=== PATIENT | female | born 1955 | race Caucasian/White ===

== ENCOUNTER 2018-10-15 20:35 | Emergency (ER) | payer OTHER ==
[2018-10-15] MEDS ORDERED: PHENYLEPHRINE 0.5% NOSE 15ML NAS ONE (21:04)
--- NOTE | 2018-10-15 21:13 | EDPHYS ---
Physician Documentation [facility] Name: Ruddy Farnsworth Age: 63 yrs Sex: Female : 1955 Arrival Date: 10/15/2018 Time: 20:44 Bed 7 Private MD: ED Physician Reinier Stanford HPI: 10/15 21:30 This 63 yrs old Female presents to ER via Ambulatory with complaints of Sinus pm1 Congestion. 21:30 Onset: The symptoms/episode began/occurred yesterday. Severity of symptoms: in the pm1 emergency department the symptoms are actually worse. Modifying factors: The symptoms are alleviated by nothing, the symptoms are aggravated by nothing. Associated signs and symptoms: Pertinent positives: earache, Pertinent negatives: diarrhea, fever, sore throat, vomiting. The patient has experienced similar episodes in the past, a few times. The patient has not recently seen a physician. Historical: - Allergies: 20:58 No Known Allergies; ak1 - Home Meds: 20:58 None [Active]; ak1 - PMHx: 20:58 None; ak1 - PSHx: 20:58 Cholecystectomy; Appendectomy; Hysterectomy; ak1 - Immunization history:: Adult Immunizations unknown. - Social history:: Smoking status: Patient/guardian denies using tobacco. - Ebola Screening: : No symptoms or risks identified at this time. ROS: 21:30 Constitutional: Negative for fever, chills, and weight loss, Eyes: Negative for injury, pm1 pain, redness, and discharge. 21:30 Neck: Negative for injury, pain, and swelling, Cardiovascular: Negative for chest pain, palpitations, and edema. 21:30 Abdomen/GI: Negative for abdominal pain, nausea, vomiting, diarrhea, and constipation, Back: Negative for injury and pain, MS/Extremity: Negative for injury and deformity, Skin: Negative for injury, rash, and discoloration, Neuro: Negative for headache, weakness, numbness, tingling, and seizure. 21:30 ENT: Positive for ear pain, sinus congestion, sinus pain. 21:30 Respiratory: Positive for cough, Negative for shortness of breath, sputum production, wheezing. Exam: 21:30 Constitutional: This is a well developed, well nourished patient who is awake, alert, pm1 and in no acute distress. Head/Face: Normocephalic, atraumatic. Eyes: Pupils equal round and reactive to light, extra-ocular motions intact. Lids and lashes normal. Conjunctiva and sclera are non-icteric and not injected. Cornea within normal limits. Periorbital areas with no swelling, redness, or edema. 21:30 Neck: Trachea midline, no thyromegaly or masses palpated, and no cervical lymphadenopathy. Supple, full range of motion without nuchal rigidity, or vertebral point tenderness. No Meningismus. Chest/axilla: Normal chest wall appearance and motion. Nontender with no deformity. No lesions are appreciated. Cardiovascular: Regular rate and rhythm with a normal S1 and S2. No gallops, murmurs, or rubs. Normal PMI, no JVD. No pulse deficits. Respiratory: Lungs have equal breath sounds bilaterally, clear to auscultation and percussion. No rales, rhonchi or wheezes noted. No increased work of breathing, no retractions or nasal flaring. Abdomen/GI: Soft, non-tender, with normal bowel sounds. No distension or tympany. No guarding or rebound. No evidence of tenderness throughout. Back: No spinal tenderness. No costovertebral tenderness. Full range of motion. Skin: Warm, dry with normal turgor. Normal color with no rashes, no lesions, and no evidence of cellulitis. MS/ Extremity: Pulses equal, no cyanosis. Neurovascular intact. Full, normal range of motion. 21:30 ENT: External ear(s): are unremarkable, Ear canal(s): are normal, TM's: bulging, on the left, erythema, on the right, Examination of the other ear shows no obvious abnormality, Nose: is normal, Mouth: is normal, Posterior pharynx: is normal. 21:30 Neuro: Orientation: is normal, Motor: is normal, moves all fours, Sensation: is normal, no obvious gross deficits, Gait: is steady, at a normal pace, without difficulty. Vital Signs: 20:56 BP 179 / 91; Pulse 75; Resp 18; Temp 98.5(TE); Pulse Ox 97% on R/A; Weight 90.72 kg ak1 (R); Height 5 ft. 6 in. (167.64 cm) (R); Pain 4/10; 22:06 BP 159 / 77; Pulse 76; Resp 16; Temp 98.5; Pulse Ox 96% on R/A; ak1 20:56 Body Mass Index 32.28 (90.72 kg, 167.64 cm) ak1 MDM: 21:04 Patient medically screened. pm1 21:12 Data reviewed: vital signs. Data interpreted: Pulse oximetry: on room air is 97 %. pm1 Interpretation: normal. Counseling: I had a detailed discussion with the patient and/or guardian regarding: the historical points, exam findings, and any diagnostic results supporting the discharge/admit diagnosis, the need for outpatient follow up, to return to the emergency department if symptoms worsen or persist or if there are any questions or concerns that arise at home. Administered Medications: 22:02 Drug: Rocephin (cefTRIAXone) 1 grams Route: IM; Site: left gluteus; ak1 22:07 Follow up: Response: No adverse reaction ak1 22:03 Drug: predniSONE 60 mg Route: PO; ak1 22:07 Follow up: Response: No adverse reaction ak1 Disposition: 10/15/18 21:13 Discharged to Home. Impression: Otitis media, unspecified, left ear. - Condition is Stable. - Discharge Instructions: Otitis Media, Adult, Sinusitis, Adult. - Prescriptions for Augmentin 875- 125 mg Oral Tablet - take 1 tablet by ORAL route every 12 hours for 10 days; 20 tablet. Medrol ([place]) 4 mg Oral Tablets, Dose Pack - take 1 tablet by ORAL route as directed - follow package instructions; 1 packet. - Medication Reconciliation Form, Thank You Letter, Antibiotic Education, Prescription Opioid Use form. - Follow up: Emergency Department; When: As needed; Reason: Worsening of condition. Follow up: Private Physician; When: 2 - 3 days; Reason: Recheck today's complaints, Continuance of care, Re-evaluation by your physician. - Problem is new. - Symptoms have improved. Signatures: Daniela Brown RN RN ak1 Daniel Poole NP [employer]CTION[employer]KER pm1 Belinda Amezcua RN RN sachin Corrections: (The following items were deleted from the chart) 22:15 21:13 10/15/2018 21:13 Discharged to Home. Impression: Otitis media, unspecified, left ea ear. Condition is Stable. Forms are Medication Reconciliation Form, Thank You Letter, Antibiotic Education, Prescription Opioid Use. Follow up: Emergency Department; When: As needed; Reason: Worsening of condition. Follow up: Private Physician; When: 2 - 3 days; Reason: Recheck today's complaints, Continuance of care, Re-evaluation by your physician. Problem is new. Symptoms have improved. pm1
--- NOTE | 2018-10-15 21:13 | ER ---
Nurse's Notes [facility] Name: Ruddy Farnsworth Age: 63 yrs Sex: Female : 1955 Arrival Date: 10/15/2018 Time: 20:44 Bed 7 Private MD: Diagnosis: Otitis media, unspecified, left ear Presentation: 10/15 20:56 Presenting complaint: Patient states: sinus pressure, headache across forehead. pt with ak1 nasal congestion since yesterday. Transition of care: patient was not received from another setting of care. Onset of symptoms was October 14, 2018. Risk Assessment: Do you want to hurt yourself or someone else? Patient reports no desire to harm self or others. Initial Sepsis Screen: Does the patient meet any 2 criteria? No. Patient's initial sepsis screen is negative. Does the patient have a suspected source of infection? No. Patient's initial sepsis screen is negative. Care prior to arrival: None. 20:56 Method Of Arrival: Ambulatory ak1 20:56 Acuity: DANYEL 4 ak1 Triage Assessment: 20:58 General: Appears in no apparent distress. Behavior is calm, cooperative. Pain: ak1 Complains of pain in forehead. EENT: Reports nasal congestion. Neuro: No deficits noted. Cardiovascular: No deficits noted. Respiratory: No deficits noted. GI: No deficits noted. : No deficits noted. Derm: No deficits noted. Musculoskeletal: No deficits noted. Historical: - Allergies: 20:58 No Known Allergies; ak1 - Home Meds: 20:58 None [Active]; ak1 - PMHx: 20:58 None; ak1 - PSHx: 20:58 Cholecystectomy; Appendectomy; Hysterectomy; ak1 - Immunization history:: Adult Immunizations unknown. - Social history:: Smoking status: Patient/guardian denies using tobacco. - Ebola Screening: : No symptoms or risks identified at this time. Screenin:58 Abuse screen: Denies threats or abuse. Denies injuries from another. Nutritional ak1 screening: No deficits noted. Tuberculosis screening: No symptoms or risk factors identified. Fall Risk None identified. Assessment: 22:06 Reassessment: Patient appears in no apparent distress at this time. No changes from ak1 previously documented assessment. see triage assessment. Vital Signs: 20:56 BP 179 / 91; Pulse 75; Resp 18; Temp 98.5(TE); Pulse Ox 97% on R/A; Weight 90.72 kg ak1 (R); Height 5 ft. 6 in. (167.64 cm) (R); Pain 4/10; 22:06 BP 159 / 77; Pulse 76; Resp 16; Temp 98.5; Pulse Ox 96% on R/A; ak1 20:56 Body Mass Index 32.28 (90.72 kg, 167.64 cm) ak1 ED Course: 20:44 Patient arrived in ED. es 20:50 Daniel Poole NP is PHCP. pm1 20:50 Reinier Stanford MD is Attending Physician. pm1 20:55 Daniela Brown, RN is Primary Nurse. ak1 20:57 Triage completed. ak1 20:58 Arm band placed on Patient placed in an exam room, on a stretcher, on pulse oximetry, ak1 Patient notified of wait time. 20:59 Patient has correct armband on for positive identification. Bed in low position. Call ak1 light in reach. Side rails up X 1. Pulse ox on. NIBP on. 22:03 No provider procedures requiring assistance completed. Patient did not have IV access ak1 during this emergency room visit. Administered Medications: 22:02 Drug: Rocephin (cefTRIAXone) 1 grams Route: IM; Site: left gluteus; ak1 22:07 Follow up: Response: No adverse reaction ak1 22:03 Drug: predniSONE 60 mg Route: PO; ak1 22:07 Follow up: Response: No adverse reaction ak1 Outcome: 21:13 Discharge ordered by . pm1 22:04 Condition: good ak1 22:04 Discharge instructions given to patient, Instructed on discharge instructions, follow up and referral plans. no drinking with medication, no driving heavy equipment, medication usage, Demonstrated understanding of instructions, follow-up care, medications, Prescriptions given X 2. 22:08 Discharged to home ambulatory, with family. ak1 22:15 Patient left the ED. ea Signatures: Beth Velasquez Amber, RN RN ak1 Daniel Poole, [employer] pm1 Belinda Amezcua RN RN ea
[2018-10-15] MEDS ORDERED: CEFTRIAXONE 1000 MG/VIAL ONE (22:09)
[2018-10-15] MEDS ORDERED: predniSONE 20 MG TAB ONE (22:09)
[2018-10-15] MEDS ORDERED: WATER FOR INJ,STERILE 10 ML ONE (22:09)
== END 2018-10-15 22:15 | disposition home or self-care (01) ==
LOC: ER 20:35
DX: H66.92 Otitis media, unspecified, left ear (principal)
CPT/HCPCS: 96372; 99283; J7512